=== PATIENT | female | born 1995 | race African-American/Black ===

== ENCOUNTER 2017-05-24 20:46 | Emergency (ER) | payer SELFPAY ==
[~2017-05-24] VITALS: Ht 157.5 cm; Wt 75.0 kg
[2017-05-24] MEDS ORDERED: PREN-88 PO (21:39)
[2017-05-25 00:26] LABS: CLARITY URINE CLOUDY (CLEAR); COLOR URINE YELLOW (YELLOW); GLUCOSE URINE NEGATIVE (NEGATIVE); KETONES URINE NEGATIVE (NEGATIVE); LEUKOCYTE ESTERASE URINE TRACE (NEGATIVE); NITRITE URINE NEGATIVE (NEGATIVE); OCCULT BLOOD URINE NEGATIVE (NEGATIVE); PH URINE 6.5 (4.5-8.0); PROTEIN URINE NEGATIVE (NEGATIVE); SPECIFIC GRAVITY URINE 1.015 (1.005-1.030); UROBILINOGEN URINE 0.2 E.U./dL (0.2-1.0)
[2017-05-25 00:45] LABS: BASOPHILS % 0.4 % (0.0-2.0); EOSINOPHILS % 2.4 % (0.0-5.0); HEMATOCRIT. 31.2 % (36.0-48.0); HEMOGLOBIN. 10.6 g/dL (12.0-16.0); LYMPHOCYTES % 18.2 % (20.0-50.0); MEAN CORPUSCULAR HEMOGLOBIN 29.4 pg (28.0-32.0); MEAN CORPUSCULAR VOLUME 86.4 fL (81.0-99.0); MONOCYTES % 5.2 % (2.0-8.0); NEUTROPHILS % 73.8 % (40.0-76.0); PLATELET 225 x1000/uL (130-400); RED BLOOD CELL COUNT 3.62 mill/uL (4.2-5.4); RED CELL DISTRIBUTION WIDTH 13.8 % (11.6-14.6)
[2017-05-25 00:52] LABS: CHLORIDE 107 mEq/L (98-107)
[2017-05-25 01:00] VITALS: BP 101/69
[2017-05-25 01:00] LABS: CARBON DIOXIDE 24 mEq/L (21-32)
== END 2017-05-25 01:10 | disposition home or self-care (01) ==
LOC: ER 21:00 → L&D 21:24 → UNDOADMOB 21:24 → CANBEDREQ 23:12 → ER 05-25 01:10
DX: O99.89 Other specified diseases and conditions complicating pregnancy, childbirth and the puerperium (principal); M94.0 Chondrocostal junction syndrome [Tietze]; S86.911A Strain of unspecified muscle(s) and tendon(s) at lower leg level, right leg, initial encounter; X58.XXXA Exposure to other specified factors, initial encounter; Y93.9 Activity, unspecified; Y92.9 Unspecified place or not applicable
CPT/HCPCS: 36415; 80053; 81001; 81025; 85025; 93005; 93971; 99285

== ENCOUNTER 2017-09-26 23:31 | Emergency (ER) | payer MEDICAID ==
[~2017-09-26] VITALS: Ht 157.5 cm; Wt 75.0 kg
[~2017-09-26 23:31] MED LIST: PREN-88 PO
[2017-09-26 23:48] VITALS: BP 118/80
== END 2017-09-27 07:32 | disposition left against medical advice (07) ==
LOC: ER 23:31
DX: R52 Pain, unspecified (principal); R50.9 Fever, unspecified; Z53.21 Procedure and treatment not carried out due to patient leaving prior to being seen by health care provider